=== PATIENT | female | born 1975 | race Caucasian/White ===

== ENCOUNTER 2018-08-11 17:38 | Emergency (ER) | payer MEDICAID ==
[~2018-08-11] VITALS: Ht 154.9 cm; Wt 58.0 kg
[~2018-08-11 17:38] MED LIST: CEPH500C2 PO; IBUP100T36
[2018-08-11] MEDS ORDERED: PREDNISONE 20MG TABLET PO ONE (19:00)
[2018-08-11] MEDS ORDERED: DIPHENHYDRAMINE 50MG CAPSULE PO ONE (19:00)
[2018-08-11 20:49] VITALS: BP 130/80
== END 2018-08-11 20:50 | disposition home or self-care (01) ==
LOC: ER 17:38
DX: T78.1XXA Other adverse food reactions, not elsewhere classified, initial encounter (principal); R07.89 Other chest pain; B00.9 Herpesviral infection, unspecified; X58.XXXA Exposure to other specified factors, initial encounter; Z88.6 Allergy status to analgesic agent; Z91.013 Allergy to seafood; Z98.890 Other specified postprocedural states
CPT/HCPCS: 99283; J7512; Q0163

== ENCOUNTER 2019-10-22 23:52 | Emergency (ER) | payer MEDICAID ==
[~2019-10-22] VITALS: Ht 152.4 cm; Wt 62.0 kg
[2019-10-23] MEDS ORDERED: SODIUM CHLORIDE 0.9% 1,000 ML IV ONE (01:06)
[2019-10-23] MEDS ORDERED: ONDANSETRON HCL 4MG/2ML INJ IV STA (01:06)
[2019-10-23] MEDS ORDERED: KETOROLAC 30MG/ML VIAL IV STA (01:06)
[2019-10-23] MEDS ORDERED: MAGNESIUM/ALUMINUM HYDROXIDE/SIMETHICONE 30ML UDC PO STA (01:06)
[2019-10-23 01:35] LABS: CLARITY URINE CLEAR (CLEAR); COLOR URINE YELLOW (YELLOW); KETONES URINE NEGATIVE (NEGATIVE); LEUKOCYTE ESTERASE URINE NEGATIVE (NEGATIVE); NITRITE URINE NEGATIVE (NEGATIVE); OCCULT BLOOD URINE NEGATIVE (NEGATIVE); PROTEIN URINE NEGATIVE (NEGATIVE); SPECIFIC GRAVITY URINE 1.008 (1.005-1.030); UROBILINOGEN URINE 0.2 E.U./dL (0.2-1.0)
[2019-10-23 01:37] LABS: BASOPHILS % 0.6 % (0.0-2.0); EOSINOPHILS % 1.6 % (0.0-5.0); HEMATOCRIT. 39.7 % (36.0-48.0); HEMOGLOBIN. 14.1 g/dL (12.0-16.0); LYMPHOCYTES % 25.4 % (20.0-50.0); MEAN CORPUSCULAR HEMOGLOBIN 32.6 pg (28.0-32.0); MEAN PLATELET VOLUME 9.3 fl (7.4-10.4); MONOCYTES % 6.5 % (2.0-8.0); NEUTROPHILS % 65.9 % (40.0-76.0); PLATELET 236 x1000/uL (130-400); RED BLOOD CELL COUNT 4.32 mill/uL (4.2-5.4); RED CELL DISTRIBUTION WIDTH 12.9 % (11.6-14.6)
[2019-10-23 01:38] LABS: CHLORIDE 108 mEq/L (98-107)
[2019-10-23 02:45] VITALS: BP 145/90
== END 2019-10-23 02:51 | disposition home or self-care (01) ==
LOC: ER 23:52
DX: R10.13 Epigastric pain (principal); R11.2 Nausea with vomiting, unspecified; Z88.6 Allergy status to analgesic agent; Z91.013 Allergy to seafood; Z98.890 Other specified postprocedural states
CPT/HCPCS: 36415; 80053; 81003; 81025; 83690; 85025; 96361; 96374; 96375; 99283; J1885; J2405; J7030

== ENCOUNTER 2022-07-11 15:21 | Emergency (ER) | payer MEDICAID ==
[~2022-07-11] VITALS: Ht 152.4 cm; Wt 63.0 kg
[2022-07-11 21:13] LABS: BASOPHILS % 0.6 % (0.0-2.0); EOSINOPHILS % 0.6 % (0.0-5.0); HEMATOCRIT. 40.5 % (36.0-48.0); HEMOGLOBIN. 13.6 g/dL (12.0-16.0); LYMPHOCYTES % 26.1 % (20.0-50.0); MEAN CORPUSCULAR HEMOGLOBIN 30.7 pg (28.0-32.0); MEAN CORPUSCULAR VOLUME 91.4 fL (81.0-99.0); MEAN PLATELET VOLUME 8.4 fl (7.4-10.4); MONOCYTES % 5.9 % (2.0-8.0); NEUTROPHILS % 66.8 % (40.0-76.0); PLATELET 314 x1000/uL (130-400); RED BLOOD CELL COUNT 4.43 mill/uL (4.2-5.4); RED CELL DISTRIBUTION WIDTH 13.7 % (11.6-14.6)
[2022-07-11 21:22] LABS: CHLORIDE 110 mEq/L (98-107)
[2022-07-11] MEDS ORDERED: ONDA4TAB50 MT (22:23)
[2022-07-11 23:05] VITALS: BP 146/93
== END 2022-07-11 23:08 | disposition home or self-care (01) ==
LOC: ER 15:21
DX: A05.9 Bacterial foodborne intoxication, unspecified (principal); I44.0 Atrioventricular block, first degree; R00.0 Tachycardia, unspecified; Z88.6 Allergy status to analgesic agent; Z91.013 Allergy to seafood
CPT/HCPCS: 36415; 80053; 85025; 93005; 99284

== ENCOUNTER 2024-04-12 13:55 | Emergency (ER) | payer SELFPAY ==
[~2024-04-12] VITALS: Ht 152.4 cm; Wt 65.0 kg
[~2024-04-12 13:55] MED LIST changes: +ONDA4TAB50 MT
[2024-04-12 14:30] LABS: CLARITY URINE CLEAR (CLEAR); COLOR URINE YELLOW (YELLOW); GLUCOSE URINE NEGATIVE (NEGATIVE); KETONES URINE NEGATIVE (NEGATIVE); LEUKOCYTE ESTERASE URINE NEGATIVE (NEGATIVE); NITRITE URINE NEGATIVE (NEGATIVE); OCCULT BLOOD URINE NEGATIVE (NEGATIVE); PH URINE 7.5 (4.5-8.0); PROTEIN URINE NEGATIVE (NEGATIVE); SPECIFIC GRAVITY URINE 1.008 (1.005-1.030); UROBILINOGEN URINE 0.2 E.U./dL (0.2-1.0)
[2024-04-12 15:13] VITALS: TEMP 98.3; O2SAT 99
[2024-04-12 15:31] LABS: BASOPHILS % 0.3 % (0.0-2.0); EOSINOPHILS % 0.3 % (0.0-5.0); HEMATOCRIT. 41.4 % (36.0-48.0); HEMOGLOBIN. 13.4 g/dL (12.0-16.0); LYMPHOCYTES % 12.9 % (20.0-50.0); MEAN CORPUSCULAR HEMOGLOBIN 29.5 pg (28.0-32.0); MEAN CORPUSCULAR HGB CONC 32.5 g/dL (31.0-37.0); MEAN CORPUSCULAR VOLUME 90.8 fL (81.0-99.0); MEAN PLATELET VOLUME 8.7 fl (7.4-10.4); MONOCYTES % 4.5 % (2.0-8.0); PLATELET 311 x1000/uL (130-400); RED BLOOD CELL COUNT 4.55 mill/uL (4.2-5.4); RED CELL DISTRIBUTION WIDTH 14.6 % (11.6-14.6); WHITE BLOOD COUNT 13.3 x1000/uL (4.5-11.0)
[2024-04-12 15:38] LABS: CHLORIDE 107 mEq/L (98-107); POTASSIUM 3.9 mEq/L (3.5-5.1); SODIUM 138 mEq/L (136-145)
[2024-04-12 15:39] LABS: CALCIUM 9.8 mg/dL (8.7-10.4); CARBON DIOXIDE 25 mEq/L (21-32)
[2024-04-12 15:44] LABS: CREATININE 0.7 mg/dL (0.6-1.0); GLUCOSE 177 mg/dL (70-105); UREA NITROGEN BLOOD 7 mg/dL (9-23)
[2024-04-12 15:45] LABS: ALANINE AMINOTRANSFERASE 19 IU/L (10-49)
[2024-04-12 15:46] LABS: ALBUMIN 4.7 g/dL (3.2-4.8); ASPARTATE AMINOTRANSFERASE 18 IU/L (<34); BILIRUBIN TOTAL 0.4 mg/dL (0.1-1.0); HCG SCREEN NEGATIVE; PROTEIN TOTAL 7.9 g/dL (6.0-8.3)
[2024-04-12 16:19] LABS: BILIRUBIN DIRECT < 0.1 mg/dL (<=3.0)
[2024-04-12] MEDS: SODIUM CHLORIDE 0.9% 1,000 ML IV ONE (16:43)
[2024-04-12] MEDS: FAMOTIDINE 20MG/2ML VIAL IV NR (16:43)
[2024-04-12] MEDS: ONDANSETRON HCL 4MG/2ML INJ IV NR (16:43)
[2024-04-12] MEDS: MORPHINE SULFATE 4 MG/ML INJ (FOR IV/IM USE) IV NR (16:44)
[2024-04-12] MEDS ORDERED: FAMO-135 MT (18:11)
[2024-04-12] MEDS ORDERED: ONDA4TAB50 MT (18:11)
[2024-04-12 19:09] VITALS: BP 160/83; PULSE 86; RESP 14; O2SAT 100
== END 2024-04-12 19:10 | disposition home or self-care (01) ==
LOC: ER 13:55
DX: K29.70 Gastritis, unspecified, without bleeding (principal); R73.9 Hyperglycemia, unspecified; Z88.5 Allergy status to narcotic agent
CPT/HCPCS: 80076; 80048; 81003; 84703; 83690; 85025; 36415; 74176; 76705; 96361; 96374; 96375; 99285; J3490; J2405; J2270; Z7610

== ENCOUNTER 2024-10-14 22:42 | Emergency (ER) | payer MEDICAID ==
[~2024-10-14] VITALS: Ht 152.4 cm; Wt 64.0 kg
[~2024-10-14 22:42] MED LIST changes: +FAMO-135 MT
[2024-10-14 23:02] VITALS: BP 158/82; PULSE 91; RESP 16; TEMP 36.8; O2SAT 98
[2024-10-15] MEDS ORDERED: DIPHENHYDRAMINE 25MG CAPSULE PO ONE
[2024-10-15] MEDS ORDERED: P50 MT (00:05)
[2024-10-15] MEDS ORDERED: DIPH25CA83 MT (00:05)
[2024-10-15] MEDS: DIPHENHYDRAMINE 25MG CAPSULE PO NR (00:22)
[2024-10-15] MEDS: PREDNISONE 20MG TABLET PO ONE (00:22)
== END 2024-10-15 00:25 | disposition home or self-care (01) ==
LOC: ER 22:57
DX: T78.40XA Allergy, unspecified, initial encounter (principal); R21 Rash and other nonspecific skin eruption; Z88.8 Allergy status to other drugs, medicaments and biological substances; Z88.6 Allergy status to analgesic agent; Z79.52 Long term (current) use of systemic steroids; Z79.899 Other long term (current) drug therapy; X58.XXXA Exposure to other specified factors, initial encounter
CPT/HCPCS: 99283; Q0163; J7512

== ENCOUNTER 2025-02-26 23:28 | Emergency (ER) | payer MEDICAID ==
[~2025-02-26] VITALS: Ht 160 cm; Wt 65.5 kg
[~2025-02-26 23:28] MED LIST changes: +DIPH25CA83 MT; +P50 MT
[2025-02-26 23:35] VITALS: O2SAT 98
[2025-02-27 00:14] LABS: BASOPHILS % 0.5 % (0.0-2.0); EOSINOPHILS % 1.0 % (0.0-5.0); HEMATOCRIT. 37.2 % (36.0-48.0); HEMOGLOBIN. 12.4 g/dL (12.0-16.0); LYMPHOCYTES % 22.5 % (20.0-50.0); MEAN PLATELET VOLUME 8.7 fl (7.4-10.4); MONOCYTES % 6.9 % (2.0-8.0); NEUTROPHILS % 69.1 % (40.0-76.0); PLATELET 265 x1000/uL (130-400); RED BLOOD CELL COUNT 4.14 mill/uL (4.2-5.4); RED CELL DISTRIBUTION WIDTH 14.3 % (11.6-14.6)
[2025-02-27 00:28] LABS: CREATININE 0.7 mg/dL (0.6-1.0); UREA NITROGEN BLOOD 13 mg/dL (9-23)
[2025-02-27 02:27] LABS: HCG SCREEN NEGATIVE
[2025-02-27 03:02] LABS: CLARITY URINE CLEAR (CLEAR); COLOR URINE YELLOW (YELLOW); SPECIFIC GRAVITY URINE 1.006 (1.005-1.030)
[2025-02-27 03:03] LABS: GLUCOSE URINE NEGATIVE (NEGATIVE); KETONES URINE NEGATIVE (NEGATIVE); LEUKOCYTE ESTERASE URINE NEGATIVE (NEGATIVE); NITRITE URINE NEGATIVE (NEGATIVE); OCCULT BLOOD URINE NEGATIVE (NEGATIVE); PH URINE 7.0 (4.5-8.0); PROTEIN URINE NEGATIVE (NEGATIVE); UROBILINOGEN URINE 0.2 E.U./dL (0.2-1.0)
[2025-02-27] MEDS ORDERED: ACET-2708 MT (03:23)
[2025-02-27 04:07] VITALS: RESP 16; TEMP 37
[2025-02-27 04:13] VITALS: BP 151/82; PULSE 93; O2SAT 100
== END 2025-02-27 04:17 | disposition home or self-care (01) ==
LOC: ER 23:28
DX: D25.9 Leiomyoma of uterus, unspecified (principal); Z86.018 Personal history of other benign neoplasm; Z88.6 Allergy status to analgesic agent; Z79.899 Other long term (current) drug therapy
CPT/HCPCS: 36415; 74176; 76856; 80048; 81003; 81025; 84703; 85025; 93005; 99284